=== PATIENT | male | born 1930 | race Caucasian/White ===

== ENCOUNTER 2016-05-06 08:42 | Day surgery (SDC) | payer MEDICARE ==
[~2016-05-06 08:42] MED LIST: LACTATED RINGERS 1,000 ML IV SCH
[2016-05-06] MEDS ORDERED: LACTATED RINGERS 1,000 ML ONE (09:18)
[2016-05-06] MEDS ORDERED: IV START KIT ONE (09:18)
[2016-05-06] MEDS ORDERED: LIDOCAINE Viscous 2% 15 ML UDCUP ONE (10:09)
[2016-05-06] MEDS ORDERED: PROPOFOL 20 ML IV ONE (10:10)
[2016-05-06 15:51] LABS: HELICOBACTER PYLORII DETECTION NEGATIVE (NEGATIVE)
--- NOTE | 2016-05-09 13:51 | SURGPATH ---
[email or web address] [address] [place] [id number] Patient Name: HARSH WEISS MR#: [id number] : 1930 Gender: M Specimen #: [id number] Collected: 05/06/2016 Received: 05/07/2016 Reported: 05/09/2016 Submitting Phys: LC PEREZ Copy To Phys: [facility] DONTAE, MARCELO TRIANA Clinical History / Pre-Operative Diagnosis: BLOATING; SATIETY; WEIGHT LOSS; ABNORMAL CAT SCAN AND SMALL BOWEL SERIES; RULE OUT GIARDIA, CELIAC SPRUE AND GASTRITIS Specimen Source / Surgical Procedure Performed: #1-DUODENAL BIOPSY; #2-ANTRAL BIOPSY Interpretation: 1. DUODENAL BIOPSY: - NO SIGNIFICANT PATHOLOGIC ABNORMALITIES IDENTIFIED. 2. ANTRAL BIOPSY: - CHRONIC AND FOCAL ACTIVE ANTRAL GASTRITIS. - NO HELICOBACTER ORGANISMS IDENTIFIED BY IMMUNOHISTOCHEMISTRY. Electronically Signed Out Natali Montana M.D. Gross Description: #1 The specimen is received in a formalin filled container labeled with the patient's name and "duodenal biopsy". Two merrill biopsies are each 0.4 cm. Totally embedded in cassette #1. #2 The specimen is received in a formalin filled container labeled with the patient's name and "antral biopsy". Two merrill biopsies are 0.3 and 0.4 cm. Totally embedded in cassette #2. Karma Rolle Microscopic Description: 1. Sections of the duodenal biopsy show benign duodenal mucosa with no significant pathologic changes. 2. Sections of the antral biopsy show increased chronic and focal acute inflammation of the lamina propria with associated mucosal congestion. There is no evidence of intestinal metaplasia or definitive mucosal atrophy. Some of the gastric pits display mild reactive changes. No convincing Helicobacter organisms are seen on the routinely stained sections. Immunohistochemical staining for Helicobacter is negative. The control material stains appropriately. (Analyte-specific reagents (ASR) are used in many laboratory tests necessary for standard medical care and generally do not require FDA approval. This test was developed and its performance characteristics determined by [email or web address]. It has not been cleared or approved by the [place]. Food and Drug Administration. [facility] is certified under the Clinical Laboratory Improvement Amendments of 1988 as qualified to perform high complexity clinical laboratory testing. All controls stain as expected.) 1: 31472 2: 63405, 75753 K29.00
== END 2016-05-06 12:02 | disposition home or self-care (01) ==
LOC: SDC 08:42
PROVIDERS: ATTEND Internal Medicine Gastroenterology
PROC: 0DB98ZX Excision of Duodenum, Via Natural or Artificial Opening Endoscopic, Diagnostic (ICD-10-PCS; principal; 2016-05-06)
PROC: 0DB68ZX Excision of Stomach, Via Natural or Artificial Opening Endoscopic, Diagnostic (ICD-10-PCS; 2016-05-06)
DX: K29.50 Unspecified chronic gastritis without bleeding (principal); K44.9 Diaphragmatic hernia without obstruction or gangrene; K29.80 Duodenitis without bleeding; Z79.82 Long term (current) use of aspirin; Z87.891 Personal history of nicotine dependence; E03.9 Hypothyroidism, unspecified; G47.39 Other sleep apnea; I45.10 Unspecified right bundle-branch block; E56.9 Vitamin deficiency, unspecified; Z88.2 Allergy status to sulfonamides; Z88.5 Allergy status to narcotic agent
CPT/HCPCS: 43239; 87081; A9270; J7120